=== PATIENT | female | born 1980 ===

== ENCOUNTER 2024-02-13 13:05 | Emergency (ER) | payer OTHER, SELFPAY ==
[2024-02-13 13:14] VITALS: BP 155/97
--- NOTE | 2024-02-13 13:27 | ED.CVA ---
History of Present Illness
General
Chief Complaint: CVA/TIA Symptoms
Source: patient
Time Seen by Provider: 02/13/24 13:14
Onset of Stroke Symptoms
Onset of symptoms known: No
Time pt last seen normal is known: No
History of Present Illness
History of Present Illness:
43-year-old female presents to the emergency room complaining of dilation of her left pupil. Patient states that she woke up this morning feeling fine. She had experienced a headache which she described as a moderate annoying headache for the
previous 4 days. However this morning she woke up feeling great. She was doing some housework including weed whacking and also 'shocking' her pool. When she came into the house she noticed that her vision had become blurry. She looked in the
mirror and noticed that her left pupil was significantly dilated when compared to her right. She denies any weakness numbness tingling anywhere in her body. She denies any difficulty speaking or swallowing. She is ambulating without any
difficulty. She has no headache. She denies diplopia. She does not take any medication.
Phy Exam
Physical Exam
Physical Exam:
General: Awake, Alert, Oriented X3. No acute distress.
Vitals: unremarkable
Head: Atraumatic
Eyes: Left pupil at 5 mm and reactive. Right pupil 3 mm and reactive. Extraocular movement is completely intact. There is no ptosis noted.
Throat: Airway intact, no exudates
Neck: Trachea midline
Lungs: Clear and equal b/l
Heart: Regular rate, no murmurs
Abd: Soft, Nontender, No pulsatile mass
Neuro: Cranial nerves intact, muscle strength equal bilaterally, cerebellar exam normal
Skin: Warm, dry, no rash
Extremities: pulses equal b/l, no edema
Course
Orders/Labs/Results
Orders:
Orders
02/13/24 13:25
CT Head & Neck Angio W/wo IV Urgent
Comment:
Reason For Exam: headache, left pupil dilation
02/13/24 13:26
Test Result ONCE
02/13/24 13:33
Basic Metabolic Panel Urgent
Complete Blood Count/With Diff Urgent
HCG, Serum Qualitative Screen Urgent
Abnormal Lab Results
02/13/24
13:33
RBC 4.19 L 10^6/uL
(4.20-5.40)
MCH 32.2 H pg
(27.0-31.0)
Glucose 120 H mg/dl
(70-99)
02/13/24 13:33
02/13/24 13:33
Vital Signs
Initial and Last Documented VS:
Initial Vital Signs
Temp Pulse Resp BP Pulse Ox
97.9 F 120 16 155/97 100
02/13/24 13:14 02/13/24 13:14 02/13/24 13:14 02/13/24 13:14 02/13/24 13:14
Last Documented Vital Signs
Temp Pulse Resp BP Pulse Ox
97.9 F 90 18 137/87 97
02/13/24 13:14 02/13/24 15:01 02/13/24 15:01 02/13/24 15:01 02/13/24 15:01
MDM/Problems Addressed
Differential Diagnosis Includes:
3rd cranial nerve palsy from mass or compression from aneurysm, dilation from chemical or pharmaceutical agent
MDM/Problems Addressed:
Patient presents with unilateral pupillary dilation. Remainder the exam is normal. There is no ptosis. CT a was obtained which shows no mass, no aneurysm. Case discussed with Dr. Gonzalez is on-call for ophthalmology. Based on the overall
presentation it seems likely the patient came in contact with some agent that has caused the pupillary dilation. Patient was doing gardening and when looking at pictures of gyms and weed endorses that she was dealing with this. Suspect
anticholinergic reaction from the gyms and we did coming in contact with her eye. At the time of discharge her pupil has virtually completely normalized
*Radiology
Radiology exam reviewed: radiology read reviewed
*Pulse Oximetry
Patient hypoxic: no
*Critical Care Note
Total Time (30-74mins, 75-104mins- exclusive of procedures): Not Applicable
ED Attending Note
-
Portions of this chart may have been created with voice recognition software.� Occasional wrong word or��sound alike� substitutions may have occurred due to the inherent limitations of voice recognition software.
Discharge Plan
Departure
Patient Disposition: Home (Routine Discharge)
Date of Disposition: 02/13/24
Time of Disposition: 17:39
Patient with high blood pressure during this ER visit?: Yes
Condition: Good
Discharge Problem:
Episodic mydriasis of left eye
Referrals:
Lyndon Dyer DO [Family Provider] -
Marco Antonio Cantor MD [Active] -
Activity Restrictions/Additional Instructions:
I believe your blurred vision and dilated pupil is from a chemical/plant substance. This should improve over the next 24 hours. I have given you the contact information for one of our eye doctors to follow up with, particularly if things have not
returned to normal.
Interventions
Interventions:
*Risk Screen - Suicide Last Done: 02/13/24 13:14
*General Assessment Last Done: 02/13/24 13:14
*Neglect/Abuse Screening Last Done: 02/13/24 13:14
ED- Fall Risk Assessment Last Done: 02/13/24 14:54
*Nursing Disposition Last Done: 02/13/24 17:59
ED- Pulmonary Assessment Last Done: 02/13/24 14:54
ED- Neurological Assessment Last Done: 02/13/24 14:54
ED- Cardiac Assessment Last Done: 02/13/24 14:05
Discharge Date and Time
Discharge Date/Time: 02/13/24 18:00
Print Language: UKRAINIAN
[2024-02-13 13:43] LABS: % Basophils 0.9 % (0-2); % Eosinophils 0.5 % (0-6); % Immature Granulocytes 0.2 % (0-0.5); % Lymphocytes 24.6 % (20.5-51.1); % Monocytes 7.3 % (1.7-9.3); % Neutrophils 66.5 % (42.2-75.2); Absolute Basophils 0.1 10^3/uL (0-0.2); Absolute Monocytes 0.6 10^3/uL (0.1-0.6); Absolute Neutrophils 5.4 10^3/uL (1.4-6.5); Hematocrit 37.7 % (37.0-47.0); Hemoglobin 13.5 g/dL (12.0-16.0); Mean Corp Hgb Conc. 35.8 g/dL (33.0-37.0); Mean Corpuscular Hgb 32.2 pg (27.0-31.0); Mean Platelet Volume 8.7 fL (7.4-10.4); Nucleated Red Blood Cells % 0 %; Platelet Count 399 10^3/uL (130-400); Red Blood Cell Count 4.19 10^6/uL (4.20-5.40); Red Cell Dist. Width 11.8 % (11.5-14.5); White Blood Cell Count 8.1 10^3/uL (4.8-10.8)
[2024-02-13 14:03] LABS: Blood Urea Nitrogen 14 mg/dl (7-17); Calcium 9.8 mg/dl (8.4-10.2); Carbon Dioxide 28 mmol/L (22-30); Chloride 103 mmol/L (98-107); Estimated Creatinine Clearance 104 ml/min; Glucose 120 mg/dl (70-99); Potassium 3.8 mmol/L (3.5-5.1); Sodium 138 mmol/L (135-145); eGFR > 60.00
[2024-02-13 14:21] LABS: HCG, Serum Qualitative Screen Negative
[2024-02-13 15:01] VITALS: BP 137/87
== END 2024-02-13 18:00 | disposition home or self-care (01) ==
LOC: EMR 13:05
PROVIDERS: EMERGENCY PHYSICIAN Emergency Medicine; FAMILY PHYSICIAN Family Medicine
DX: H57.04 Mydriasis (principal); R51.9 Headache, unspecified; R03.0 Elevated blood-pressure reading, without diagnosis of hypertension; Z88.1 Allergy status to other antibiotic agents
CPT/HCPCS: 99284; 70496; 70498; 80048; 84703; 85025; Q9967